=== PATIENT | female | born 1980 | race Caucasian/White ===

== ENCOUNTER 2020-03-04 17:39 | Outpatient (REF) | payer MEDICAID, SELFPAY ==
[2020-03-04 19:43] LABS: BUN 21 mg/dL (7-18); CREATININE 0.93 mg/dL (0.55-1.02); Calcium 8.9 mg/dL (8.5-10.1); Calculated LDL 97 mg/dL (<100); Chloride 106 mmol/L (98-107); Cholesterol 169 mg/dL (<200); Glucose 81 mg/dL (74-106); HDL Cholesterol 53 mg/dL (40-60); Potassium 4.9 mmol/L (3.5-5.1); Sodium 141 mmol/L (136-145); Triglyceride 98 mg/dL (<150)
== END 2020-03-04 17:59 ==
LOC: NCHCN 17:39
PROVIDERS: PCP Physician Assistant; Visit Provider Physician Assistant
DX: Z00.00 Encounter for general adult medical examination without abnormal findings (principal)
CPT/HCPCS: 80048; 80061

== ENCOUNTER 2020-10-31 01:45 | Outpatient (CLI) | payer MEDICAID, SELFPAY ==
--- NOTE | 2020-10-31 12:15 | DI.RAD_ITS ---
Exam(s) XR KNEE LT 3V AP,LAT,DILAN EXAM: XR KNEE LT 3V AP,LAT,DILAN CLINICAL HISTORY: LT KNEE JOINT PAIN M25.562, PAIN, GAVE OUT A WEEK AGO. TECHNIQUE: 2D digital imaging was performed. COMPARISON: No exams were available for comparison FINDINGS: BONES: No acute fracture is present. No bony destructive lesion is seen. No significant degenerativ e changes. JOINTS: The knee is normally aligned. A joint effusion is seen. SOFT TISSUE: Normal. IMPRESSION: Joint effusion. No bony abnormality. DATA REPOSITORY: RADIATION DOSE DELIVERED:
== END 2020-10-31 02:05 ==
PROVIDERS: PCP Physician Assistant; Visit Provider Physician Assistant
DX: M25.462 Effusion, left knee (principal)
CPT/HCPCS: 73562

== ENCOUNTER 2022-03-05 16:05 | Emergency (ER) | payer MEDICAID, SELFPAY ==
[2022-03-05 16:23] VITALS: BP 135/85; PULSE 73; RESP 20; TEMP 36.6; O2SAT 99
--- NOTE | 2022-03-05 17:15 | DI.RAD_ITS ---
Exam(s) XR KNEE LT 3V AP,LAT,DILAN EXAM: XR KNEE LT 3V AP,LAT,DILAN CLINICAL HISTORY: left knee pain, fall. TECHNIQUE: 2D digital imaging was performed. COMPARISON: CR XR KNEE LT 3V AP,LAT,DILAN from 10/31/2020 FINDINGS: 3 views No evidence of fractureh but there is a joint effusion noted. Similar to previous. Signifies advisory internship al derangement. Degenerative subarticular cyst is seen in the mid aspect of the tibial plateau. No osteochondral defects. No joint space narrowing. IMPRESSION: No significant osseous findings but there is a joint effusion which signifies internal derangement. Appropriate follow-up recommended. DATA REPOSITORY: RADIATION DOSE DELIVERED:
--- NOTE | 2022-03-05 19:53 | DI.VRAD_ITS ---
PROCEDURE INFORMATION: Exam: XR Left Knee Exam date and time: 03/05/2022 7:13 PM Age: 42 years old Clinical indication: Injury or trauma; Fall; Other: Left knee pain, left TECHNIQUE: Imaging protocol: Radiologic exam of the Left knee. Views: 3 views. COMPARISON: CR XR KNEE LT 3V AP,LAT,DILAN 10/31/2020 12:04 PM FINDINGS: Bones/joints: No acute fracture or malalignment. No significant degenerative change. No agressive bone destruction. Soft tissues: A small to moderate size suprapatellar effusion is similar to prior. IMPRESSION: 1. No acute osseous findings. A small to moderate size suprapatellar effusion is similar to prior. 2. If clinical concern for occult fracture, consider followup radiographs in 10-14 days. Dictated and Authenticated by: Una Mendez MD. Ordering:OCTAVIA Harper MD
--- NOTE | 2022-03-05 20:00 | W.ED.GENAD ---
Discharge Plan Disposition Patient Disposition: HOME Condition: Stable Discharge Details Clinical Impression: Effusion of knee, Contusion of knee, left Primary Care Provider: Zane Leon ED Provider: Meredith Yip Home Meds and New Rx's Prescriptions: Continued levetiracetam 500 mg tablet 500 mg PO DAILY sertraline 25 mg tablet 25 mg PO DAILY budesonide-formoterol [Symbicort] 160-4.5 mcg/actuation HFA aerosol inhaler 1 inh INHALATION BID Discharge Instructions Instructions: Contusion in Adults (ED) Additional Instructions: Please follow-up with primary with orthopedics for effusion and your knee joint, no obvious fracture, but there is concern with the effusion that he may have injured your ligaments or tendons May take ibuprofen and Tylenol as needed for pain Referrals: Steve Celestin MD [ [facility] STAFF PHYSICIAN] - Discharge Data Discharge Date/Time-TO BE ENTERED AT DEPARTURE: 03/05/22 21:12 Medical Decision Making knee immobilizer and crutches for effusion noted on x-ray of knee per radiology interpretation my review Now indication for x-ray of wrist, range of motion intact, mild tenderness, strain Given crutches Referral to orthopedics Return precautions noreen and patient expressed understanding Will take ibuprofen and Tylenol as needed for pain Medical Records Medical records reviewed: Yes I reviewed the patient's medical records. HPI General Date/Time Provider Initiated Documentation: 03/05/22 17:11. HPI Narrative: This 42-year-old female presents with report of slip and fall on a wet floor. She reportedly landed on her left knee. She reports pain to both wrists. She has some mild back pain as well. She denies any head injury. The event occurred last evening per patient. She has been ambulatory with discomfort since that time. Pain is exacerbated with movement of wrist and left knee. She does not take any medications prior to arrival per patient. Denies chance of or abdominal pain. Denies any dysuria. Related Data Home Medications Medication Instructions Recorded Confirmed budesonide-formoterol HFA 160 1 inh inhalation BID 03/05/22 03/05/22 mcg-4.5 mcg/actuation aerosol inhaler (Symbicort) levetiracetam 500 mg tablet 500 mg PO DAILY 03/05/22 03/05/22 sertraline 25 mg tablet 25 mg PO DAILY 03/05/22 03/05/22 Allergies Allergy/AdvReac Type Severity Reaction Status Date / Time No Known Allergies Allergy Unverified 03/05/22 16:26 General Stated Complaint: Orthopedic JESSICA: 4 Review of Systems All systems reviewed & are unremarkable except as noted in HPI and below PFSH All Active Problems (Updated 03/05/22 @ 19:59 by DEISI Emanuel) Effusion of knee (Acute) Contusion of knee, left (Acute) Social History Smoking/Tobacco Use Status: Current every day Tobacco Type: cigarettes Smoking risk assessment performed?: Yes Alcohol Intake: never Substance use type: does not use Exam Const General: cooperative, comfortable and no acute distress HENMT Head: normal to inspection Eyes Pupils: PERRL Neck Other: no midline tenderness, no visible signs of trauma Chest Chest: normal inspection of the chest Resp Effort & Inspection: normal respiratory effort Auscultation: clear to auscultation bilaterally Cardio Rate: regular rate Other: distal pulses intact GI Inspection: normal to inspection Skin General skin exam: no rashes or lesions noted Other: no midline lumbar or thoracic tenderness, mild lumbar paraspinal tenderness Neuro General: patient alert and patient oriented x3 Cranial Nerves: CN's II-XI intact bilaterally Other: strength and sensation intact distally Extrem Other: left knee with tenderness, predominantly with flexion no obvious instability or effusion no tenderness to hip or ankle on left mild bilateral wrist tenderness, ROM preserved Course Vital Signs Vital signs: Vital Signs Temperature 36.6 C 03/05/22 16:23 Pulse 73 03/05/22 16:23 Respiratory Rate 20 03/05/22 16:23 Blood Pressure 135/85 03/05/22 16:23 Pulse Oximetry 99 03/05/22 16:23 Temperature 36.6 C 03/05/22 16:23 Temperature Source Temporal Artery Scan 03/05/22 16:23 Pulse 73 03/05/22 16:23 Respiratory Rate 20 03/05/22 16:23 Respiratory Effort 03/05/22 18:40 Blood Pressure 135/85 03/05/22 16:23 Blood Pressure Position Sitting 03/05/22 16:23 Pulse Oximetry 99 03/05/22 16:23 Pain Level 7 03/05/22 18:42
== END 2022-03-05 21:12 | disposition home or self-care (01) ==
PROVIDERS: Emergency Provider Physician Assistant; PCP Physician Assistant
DX: S80.02XA Contusion of left knee, initial encounter (principal); W01.0XXA Fall on same level from slipping, tripping and stumbling without subsequent striking against object, initial encounter
CPT/HCPCS: 73562; 99283; 99282